=== PATIENT | female | born 1985 | race American Indian/Alaskan Native ===

== ENCOUNTER 2017-02-24 17:04 | Inpatient (IN) | payer SELFPAY ==
[2017-02-24 17:22] VITALS: BMI 21.7
[2017-02-24] MEDS ORDERED: Oxytocin 30 UNITS in Sodium Chloride 0.9% 500 ML IV ONE (17:25)
[2017-02-24] MEDS ORDERED: Oxycodone/Acetaminophen 5/325 mg Tab PO PRN (18:00)
[2017-02-24 18:45] LABS: BASO % 0.2 % (0.0-2.0); EOS # 0.1 K/uL (0.0-0.7); EOS % 0.6 % (0.0-4.0); HEMATOCRIT 30.5 % (34.0-47.0); LYMPH # 3.6 K/uL (1.0-4.3); LYMPH % 25.9 % (20.0-40.0); MEAN CELL VOLUME 87.3 fl (81.0-99.0); MEAN CORPUSCULAR HEMOGLOBIN 28.5 pg (27.0-31.0); MEAN CORPUSCULAR HGB CONC 32.6 g/dL (33.0-37.0); MEAN PLATELET VOLUME 9.7 fl (7.2-11.7); MONO # 1.1 K/uL (0.0-0.8); MONO % 7.8 % (0.0-10.0); NEUT # 9.1 K/uL (1.8-7.0); NEUT % 65.5 % (50.0-75.0); RED CELL DISTRIBUTION WIDTH 13.7 % (11.5-14.5); WHITE BLOOD COUNT 13.9 K/uL (4.8-10.8)
[2017-02-24 18:52] LABS: ALKALINE PHOSPHATASE 99 U/L (38-126); ALT/SGPT 30 U/L (9-52); AST/SGOT 23 U/L (14-36); BILIRUBIN,TOTAL 0.2 mg/dl (0.2-1.3); BLOOD UREA NITROGEN 6 mg/dl (7-17); CARBON DIOXIDE 24 mmol/L (22-30); CHLORIDE 103 mmol/L (98-107); GFR AFRICAN-AMERICAN > 60; GLUCOSE,RANDOM 84 mg/dL (65-105); POTASSIUM 3.3 MMOL/L (3.6-5.0); SODIUM 136 mmol/l (132-148); TOTAL PROTEIN 7.1 G/DL (6.3-8.2)
[2017-02-24 18:53] LABS: PARTIAL THROMBOPLASTIN TIME 25.2 Seconds (25.6-37.1)
[2017-02-24 18:55] LABS: RBC URINE 4 /hpf (0-3); URINE BACTERIA RARE (<OCC); URINE BILIRUBIN NEGATIVE (NEGATIVE); URINE BLOOD NEGATIVE (NEGATIVE); URINE COLOR YELLOW (YELLOW); URINE GLUCOSE (UA) NEG (Normal); URINE KETONE 80 mg/dL (NEGATIVE); URINE LEUKOCYTE ESTERASE NEG Leu/uL (Negative); URINE PROTEIN 30 mg/dL (NEGATIVE); WBC URINE 2 /hpf (0-5)
[2017-02-25] MEDS ORDERED: Oxycodone/Acetaminophen 5/325 mg Tab PO PRN (00:15)
--- NOTE | 2017-02-25 01:04 | NBPN ---
Datetime: 02/24/2017 17:50 Nsy Prov Impression/Plan Details: Called to 20 week delivery. Mother is G1 with VITALY 07/12/17 per ultrasound.PPROM 02/24/17 @ 5.25Pm.Labor was precipitous.Baby A born breech at 17.35.baby B deliv ered at 17:37. Both twins already delivered.Babies seen at about 17:40. Baby A:Weight 15 oz/438 grams.Baby has no spontaneous respiration,no palpable pulse, faint heart rate about 10/minute,limp,body and extremities covered with ecchymosis,gelatinous skin,fused eyelids, no lanugo.Baby is not viable,being extremely premature at about 20 wk GA Baby B weighs about 10 oz.Baby B has no spontaneous respiration,few agonal gasps,faint heart rate 8-10 per minutes,no palpable pulses,fused eyelids,gelatinous skin with no lanugo.Baby is extremely VL BW,premature 20 weeks,non viable. Explained to career coach/mother
[2017-02-25 08:26] VITALS: O2SAT 99
[2017-02-25 09:59] LABS: BASO % 0.3 % (0.0-2.0); EOS # 0.1 K/uL (0.0-0.7); EOS % 0.9 % (0.0-4.0); HEMATOCRIT 26.7 % (34.0-47.0); LYMPH # 1.5 K/uL (1.0-4.3); MEAN CELL VOLUME 85.7 fl (81.0-99.0); MEAN CORPUSCULAR HEMOGLOBIN 29.3 pg (27.0-31.0); MEAN CORPUSCULAR HGB CONC 34.2 g/dL (33.0-37.0); MONO # 0.8 K/uL (0.0-0.8); MONO % 5.9 % (0.0-10.0); NEUT # 11.2 K/uL (1.8-7.0); NEUT % 81.9 % (50.0-75.0); NRBC % 0.1 % (0.0-0.0); RED CELL DISTRIBUTION WIDTH 13.6 % (11.5-14.5); WHITE BLOOD COUNT 13.7 K/uL (4.8-10.8)
--- NOTE | 2017-02-25 11:17 | CP.PCM.PN ---
<Raulito Torres - Last Filed: 02/25/17 11:33> Subjective - Date & Time of Evaluation Date of Evaluation: 02/25/17 Time of Evaluation: 10:00 - Subjective Subjective: Minh Mccallum is a pleasant 31 yo lady day 1 s/p (20 wk) vaginal delivery of twin gestation. Pt denies significant overnight events. She shares of occasional lower pelvic pain that is sharp in character and sometimes radiates to L lower quadrant but lasting seconds. She shares that pain management alleviates her symptoms. She's able to ambulate with help. Urinates freely without burning but has yet to produce bowel movements or experience GI gas. She shares of mild lochia. Denies : fever, chills, nausea, vomiting, chest pain, shortness of breath, lightheadedness, or calf pain. Pt currently stable. Plan: prescribed Motrin for pain management; FeSO4 for slight anemia. Cleared from MAT INSPECTOR standpoint. Case d/w Dr. Jacquie Torres MD Objective - Vital Signs/Intake and Output Vital Signs (last 24 hours): Temp Pulse Resp BP Pulse Ox 97.8 F 89 20 130/81 99 02/25/17 08:25 02/25/17 08:25 02/25/17 08:25 02/25/17 08:25 02/25/17 08:25 - Medications Medications: Current Medications Ibuprofen (Motrin Tab) 600 mg PO Q6 PRN PRN Reason: Pain, Mild (1-3) Oxycodone/Acetaminophen (Percocet 5/325 Mg Tab) 1 tab PO Q4 PRN PRN Reason: Pain, moderate (4-7) Stop: 02/27/17 18:01 Last Admin: 02/25/17 04:26 Dose: 1 tab - Labs Labs: 02/25/17 09:15 02/24/17 18:31 PT 11.2 Seconds (9.8-13.1) 02/24/17 18:27 INR 1.0 (0.9-1.2) 02/24/17 18:27 APTT 25.2 Seconds (25.6-37.1) L 02/24/17 18:27 <Mary Dhillon - Last Filed: 02/25/17 14:49> Objective - Vital Signs/Intake and Output Vital Signs (last 24 hours): Temp Pulse Resp BP Pulse Ox 98 F 72 18 126/70 99 02/25/17 13:00 02/25/17 13:00 02/25/17 13:00 02/25/17 13:00 02/25/17 13:00 - Medications Medications: Current Medications Ibuprofen (Motrin Tab) 600 mg PO Q6 PRN PRN Reason: Pain, Mild (1-3) Oxycodone/Acetaminophen (Percocet 5/325 Mg Tab) 1 tab PO Q4 PRN PRN Reason: Pain, moderate (4-7) Stop: 02/27/17 18:01 Last Admin: 02/25/17 04:26 Dose: 1 tab - Labs Labs: 02/25/17 09:15 02/24/17 18:31 PT 11.2 Seconds (9.8-13.1) 02/24/17 18:27 INR 1.0 (0.9-1.2) 02/24/17 18:27 APTT 25.2 Seconds (25.6-37.1) L 02/24/17 18:27 Assessment and Plan - Assessment and Plan (Free Text) Assessment: OB Hospitalist Addendum: Pt seen and examined by me. Agree w/ above. 31 yo HD 2 s/p VD of twin gestation at 20 weeks w/ no complaints, reports bleeding is not heavy. On exam, she appears teary, fundus firm. Hgb today is 9.1. Discharge home today. Nurse will contact social work given pt has medicaid for [place] and recently moved to [place]. Rx's motrin and ferrous sulfate given. Pt told to f/u at the [facility] in [place]. (ES)
[2017-02-25 13:09] VITALS: RESP 18
[2017-02-25 16:54] VITALS: BP 105/64; PULSE 98; TEMP 99
== END 2017-02-25 18:57 | disposition home or self-care (01) | DRG 775 ==
LOC: H.EROB2 17:04 → H.L&D 18:16 → H.MEDSURG1 02-25 00:10 → UNDODISIN 02-25 18:57
PROVIDERS: ADMIT Obstetrics & Gynecology; ATTEND Obstetrics & Gynecology
PROC: 10E0XZZ Delivery of Products of Conception, External Approach (ICD-10-PCS; principal; 2017-02-25)
DX: O42.912 Preterm premature rupture of membranes, unspecified as to length of time between rupture and onset of labor, second trimester (principal); O60.12X2 Preterm labor second trimester with preterm delivery second trimester, fetus 2; Z37.4 Twins, both stillborn; O30.002 Twin pregnancy, unspecified number of placenta and unspecified number of amniotic sacs, second trimester; O32.1XX2 Maternal care for breech presentation, fetus 2; Z3A.20 20 weeks gestation of pregnancy